=== PATIENT | female | born 1985 | race Caucasian/White ===

== ENCOUNTER 2025-04-23 09:56 | Emergency (ER) | payer BC ==
[~2025-04-23] VITALS: Ht 167.6 cm; Wt 102.3 kg
[2025-04-23 10:05] VITALS: BP 131/81; PULSE 96; RESP 16; O2SAT 99
[2025-04-23 10:31] LABS: LEUKOCYTE ESTERASE ,URINE SMALL (Neg); NITRITES, URINE NEGATIVE (Neg); OCCULT BLOOD,URINE TRACE-INTACT (Neg)
[2025-04-23 10:44] LABS: SQUAMOUS EPITHELIAL CELL,UR FEW /LPF (FEW)
[2025-04-23] MEDS ORDERED: SULF1TAB49 PO (10:59)
--- NOTE | 2025-04-23 10:59 | Physician Documentation ---
History of Present Illness ~ Chief Complaint: Urinary Symptoms Stated Complaint: ABDOMINAL PAIN Time Seen by MD: 10:38 HPI Patient presents with urinary symptoms including burning urination and pelvic pressure. She states that she does not have any foul discharge or increased discharge or itchiness. Denies having any history history of bacterial vaginosis or vaginal candidiasis Denies any fevers. Denies flank pain. Day of Onset: Apr 23, 2025 Medication Reconciliation Allergies: Coded Allergies: No Known Allergies (Unverified , 04/23/25) Scheduled Sulfamethoxazole/Trimethoprim (Bactrim Ds Tablet), 1 EACH PO BID Past Medical History Smoking Status: Never smoker Review of Systems All Other Systems at this time: Reviewed and Negative ROS As stated above in the HPI, otherwise all systems are reviewed and negative. Physical Exam Vital Signs: Temperature: 98.4, Source: Temporal, Heart Rate: 96, Respiratory Rate: 16, BP: 131/81, Pulse Oximetry: 99, Weight: 102.270 Oxygen Flow Rate: 0 Physical Exam General: Alert, no apparent distress. HEENT: PERRL, EOMI, no injection, moist mucous membranes. Gastrointestinal: Soft, nontender, nondistended. Bowels sounds present. Extremities: Normal range of motion, no deformity. Neurologic: Oriented x4. Psychiatric: Normal mood and affect. Skin: Normal color, warm and dry. No edema, no ecchymosis. Progress Results/Orders Results/Orders Vital Signs 04/23/25 04/23/25 10:05 11:17 Temp 98.4 98.4 Pulse 96 Resp 16 B/P (MAP) 131/81 Pulse Ox 99 O2 Flow Rate 0 Laboratory Tests Test 04/23/25 10:07 Urine Specimen Description Cln catch midstream Urine Color Yellow Urine Clarity Slightly cloudy Urine pH 6.0 Urine Specific [place] <=1.005 Urine Protein Negative Urine Glucose (UA) Negative Urine Ketones Negative Urine Occult Blood Trace-intact Urine Nitrite Negative Urine Bilirubin Negative Urine Urobilinogen 0.2 Urine Leukocyte Esterase Small H Urine RBC 0-2 Urine WBC 0-4 Urine Squamous Epithelial Cells Few Urine Bacteria 1+ Urine Culture Indicated Indicated Volume Urine Centrifuged 10 ml Urine Comment Microbiology Date/Time Source Procedure Growth Status 04/23/25 10:48 Urine Nonspecified Urine Culture - Preliminary Culture received. Resulted Medical Decision Making Findings Based on patient's reported history is it she has had UTIs before which did not initially test positive but led to her urine being cultured and requiring antibiotics. I am going to treat her empirically based on this history Departure Disposition: HOME / SELF CARE / HOMELESS Impression: Primary Impression: Acute urinary tract infection Condition: Stable Discharge Instructions: Urinary Tract Infection, Adult Referrals: NO PRIMARY CARE PROVIDER (PCP) Prescriptions Sulfamethoxazole/Trimethoprim (Bactrim Ds Tablet) 800 Mg-160 Mg Tablet 1 EACH PO BID, #20 TAB Prov: PETE DENNISON [employer]ORAL DESIGNER SALESPERSON 04/23/25 Signature Scribe Signature: h Attestation: Scribed for Pete Dennison Courtesy Booth Cashier by Pete Montiel NP . 04/23/25 17:23 PETE DENNISON [employer] DESIGN[employer] SALESPERSON Apr 23, 2025 10:59
[2025-04-23 11:17] VITALS: TEMP 98.4
[2025-04-23 11:26] LABS: UA COLLECTION TYPE CLN CATCH MIDSTREAM
== END 2025-04-23 11:19 | disposition home or self-care (01) ==
LOC: ER 09:58
DX: N39.0 Urinary tract infection, site not specified (principal); Z79.899 Other long term (current) drug therapy
CPT/HCPCS: 81001; 87077; 87088; 87186; 99283